=== PATIENT | male | born 2000 | race American Indian/Alaskan Native ===

== ENCOUNTER 2019-08-28 11:50 | Emergency (ER) | payer SELFPAY ==
[2019-08-28 12:14] VITALS: BP 121/78
--- NOTE | 2019-08-28 12:20 | Emergency Department Report ---
Chief Complaint: Pain General Stated Complaint: PANIC ATTACK Time Seen by Provider: 08/28/19 12:16 - HPI History of Present Illness: 19 y o male presents to ED complaining of having a panic attack while he was at work today. She states he's had this one time about a couple years ago he was under a lot of stress. He denies chest pain, shortness of breath, abdominal pain, nausea vomiting or any other symptoms. - ROS Review of Systems: noted in HPI - Exam Vital Signs: Vital Signs 08/28/19 12:12 Temperature 98 F Pulse Rate 93 H Respiratory 16 Rate Blood Pressure 121/78 O2 Sat by Pulse 99 Oximetry Physical Exam: GENERAL: Alert and oriented x3, no apparent distress, Normal Gait, atraumatic. HEAD: Head is normocephalic and a-traumatic. SKIN: Warm and dry, No lesions, No ulceration or induration present. MSE screening note: Focused history and physical exam performed. Due to findings the following was ordered: ED Medical Decision Making - Medical Decision Making This 19-year-old male who presents with a panic attack with no symptoms present I discussed with the patient had this is not a medical emergency. She was given therapist referrals Medicines are normal patient is in no acute distress ED Disposition for MSE Clinical Impression: Panic attack as reaction to stress Disposition: Z-07 MED SCREENING EXAM-LEFT Is pt being admited?: No Does the pt Need Aspirin: No Condition: Stable Instructions: Stress (ED), Panic Disorder (ED) Additional Instructions: follow up with with therapist Referrals: [facility] [Outside] - 3-5 Days [facility] [Outside] - 3-5 Days Forms: Work/School Release Form(ED) Time of Disposition: 12:17
== END 2019-08-28 12:18 | disposition left against medical advice (07) ==
LOC: ED 11:50
DX: F41.0 Panic disorder [episodic paroxysmal anxiety] (principal)
CPT/HCPCS: 99281